=== PATIENT | female | born 1975 | race Caucasian/White ===

== ENCOUNTER 2017-01-18 11:46 | Emergency (ER) | payer OTHER, SELFPAY ==
[2017-01-18 12:56] VITALS: BMI 25.7
[2017-01-18 13:06] VITALS: RESP 18
--- NOTE | 2017-01-18 13:31 | C.PDOC ---
History Of Present Illness 41 yr old female with PMHx of HTN, presents to the ER for evaluation of nasal congestion, sore throat and dry cough persistent for the past week and a half. Patient denies fever, chills, chest pain, SOB, drooling, lethargy, nausea, vomiting, abdominal pain, diarrhea, headache, weakness or numbness. Time Seen by Provider: 01/18/17 13:10 Chief Complaint (Nursing): Cough, Cold, Congestion History Per: Patient History/Exam Limitations: no limitations Onset/Duration Of Symptoms: Persistent (Week and a half) Current Symptoms Are (Timing): Still Present Sick Contacts (Context): None Past Medical History Reviewed: Historical Data, Nursing Documentation, Vital Signs Vital Signs: Last Vital Signs Temp 98.2 F 01/18/17 14:24 Pulse 75 01/18/17 14:24 Resp 18 01/18/17 14:24 BP 128/75 01/18/17 14:24 Pulse Ox 97 01/18/17 14:24 - Medical History PMH: Anxiety, Depression, HTN, Migraine (Headaches when she doesn't take her BP medication(s)) Surgical History: Cholecystectomy (2006) Family History: States: No Known Family Hx - Social History Hx Tobacco Use: No Hx Alcohol Use: Yes Hx Substance Use: No - Immunization History Hx Tetanus Toxoid Vaccination: Yes Hx Influenza Vaccination: Yes Hx Pneumococcal Vaccination: Yes Review Of Systems Except As Marked, All Systems Reviewed And Found Negative. Constitutional: Negative for: Fever, Chills ENT: Positive for: Nose Congestion, Throat Pain (Sore throat ) Cardiovascular: Negative for: Chest Pain Respiratory: Positive for: Cough (Dry). Negative for: Shortness of Breath Gastrointestinal: Negative for: Nausea, Vomiting, Abdominal Pain, Diarrhea Neurological: Negative for: Weakness, Numbness, Headache Physical Exam - Physical Exam Appears: Well, Non-toxic, No Acute Distress Skin: Normal Color, Warm, Dry, No Rash Eye(s): bilateral: Normal Inspection Ear(s): Bilateral: Normal Nose: Discharge (B/L nasal congestion with scant rhinorhea) Oral Mucosa: Moist, No Drooling Throat: Erythema (mild B/L), No Exudate, No Drooling Neck: Normal, Normal ROM, Supple Cardiovascular: Rhythm Regular Respiratory: Normal Breath Sounds, No Decreased Breath Sounds, No Accessory Muscle Use, No Rales, No Rhonchi, No Stridor, No Wheezing Gastrointestinal/Abdominal: Normal Exam, Soft, No Tenderness Back: Normal Inspection Extremity: Normal ROM, No Pedal Edema Neurological/Psych: Oriented x3, Normal Speech ED Course And Treatment O2 Sat by Pulse Oximetry: 100 Pulse Ox Interpretation: Normal Progress Note: On re-evaluation, pt is afebrile, hemodynamicaly stable. Non- toxic. Tolerate Po well in ED. PusleOx 100% RA. ENT: no acute finidngs. Neck : (-) meningeal sign. Lungs: CTA B/L, BS equal B/L. Abd: Benign. Neurologicaly intact. Pt has clinical findings c/w bronchitis. Pt advised. ref. to f/u with PMD In 2-3 dyas for re-evaluation. Return to ED if any worsening ro new changes. Medical Decision Making Medical Decision Making: PLAN: * Benadryl PO * Tessalon Perles PO * Zithromax PO * Prednisone PO Disposition Counseled Patient/Family Regarding: Diagnosis, Need For Followup, Rx Given - Disposition Referrals: Clinic,Med Surg [Primary Care Provider] - Disposition: HOME/ ROUTINE Disposition Time: 13:32 Condition: STABLE Additional Instructions: Encourage fluids Take medication as prescribed Follow up with PMD In 2-3 days for re-evaluation. Return to ED if any worsening or new changes. 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 - Scribe Statement The provider has reviewed the documentation as recorded by the Scribe Anisa Mcmahon All medical record entries made by the Scribe were at my direction and personally dictated by me. I have reviewed the chart and agree that the record accurately reflects my personal performance of the history, physical exam, medical decision making, and the department course for this patient. I have also personally directed, reviewed, and agree with the discharge instructions and disposition.
[2017-01-18 14:25] VITALS: BP 128/75; PULSE 75; TEMP 98.2
[2017-01-20 13:22] VITALS: O2SAT 100
== END 2017-01-18 14:26 | disposition home or self-care (01) ==
LOC: SUPCPDRO 11:46 → C.ER 11:46
DX: J40 Bronchitis, not specified as acute or chronic (principal)

== ENCOUNTER 2017-06-16 15:52 | Emergency (ER) | payer OTHER ==
[2017-06-16 15:53] VITALS: BMI 25.7
[2017-06-16 16:06] VITALS: BP 115/69; TEMP 98.7
--- NOTE | 2017-06-16 16:39 | C.PDOC ---
History Of Present Illness 41 year old female presents to ED for evaluation exacerbation of allergies for the past week. Notes taking Benadryl and Gaby without relief. Pt reports having non-productive cough, which is worse at night due to runny nose. Notes she is unable to sleep at night. Pt is requesting similar meds "like they gave me last time" from prior ER vist 01/2017. Also reports bilateral eye itchiness. Denies history of asthma. No shortness of breath. CO ALLERGIES EXAC X 1 WEEK. NO RELIEF W BENADRYL, GABY. 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 UNABLE TO SLEEP. REQUESTING SIM MEDS "LIKE THEY GAVE ME LAST TIME" FROM PRIOR ER VISIT 01/2017. +B/L EYE ITCH. DENIES HO ASTHMA, SOB. ' EXAM MILD DIST NONTOXIC HEENT MILD B/L ANGIOEDEMA, B/L WATERY EYE DC. +CLEAR RHINORRHEA LUNGS NEG NO HIVES. Time Seen by Provider: 06/16/17 16:24 Chief Complaint (Nursing): ENT Problem History Per: Patient History/Exam Limitations: no limitations Onset/Duration Of Symptoms: Days (1 week) Sick Contacts (Context): None Associated Symptoms: Cough. denies: Fever, Sore Throat, Sputum Ear Symptoms: Bilateral: None Recent travel outside of the [place]: No Additional History Per: Patient Past Medical History Reviewed: Historical Data, Nursing Documentation, Vital Signs Vital Signs: Last Vital Signs Temp 98.7 F 06/16/17 16:06 Pulse 88 06/16/17 16:48 Resp 18 06/16/17 16:48 BP 115/69 06/16/17 16:06 Pulse Ox 100 06/16/17 17:03 - Medical History PMH: Anxiety, Depression, HTN, Migraine (Headaches when she doesn't take her BP medication(s)) Surgical History: Cholecystectomy (2006) Family History: States: Unknown Family Hx - Social History Hx Tobacco Use: No Hx Alcohol Use: No Hx Substance Use: No - Immunization History Hx Tetanus Toxoid Vaccination: Yes Hx Influenza Vaccination: Yes Hx Pneumococcal Vaccination: Yes Review Of Systems Except As Marked, All Systems Reviewed And Found Negative. Constitutional: Negative for: Fever, Chills Eyes: Positive for: Other (itching to b/l eyes) ENT: Positive for: Nose Discharge (rhinorrhea) Cardiovascular: Negative for: Chest Pain Respiratory: Positive for: Cough. Negative for: Shortness of Breath, Sputum, Wheezing Skin: Negative for: Rash Physical Exam - Physical Exam Appears: Non-toxic, Other (In mild distress) Skin: Normal Color, Warm, Dry, No Rash Head: Atraumatic, Normacephalic, Other (mild b/l angioedema) Eye(s): bilateral: Other (watery eye discharge) Ear(s): Bilateral: Normal Nose: Discharge (clear rhinorrhea) Oral Mucosa: Moist Throat: Normal, No Erythema, No Exudate, No Drooling Neck: Normal ROM, Supple Cardiovascular: Rhythm Regular, No Murmur Respiratory: Normal Breath Sounds, No Rales, No Rhonchi, No Wheezing Extremity: Bilateral: Atraumatic, Normal ROM Neurological/Psych: Oriented x3, Normal Speech, Normal Cognition ED Course And Treatment O2 Sat by Pulse Oximetry: 100 (on RA) Pulse Ox Interpretation: Normal Disposition Counseled Patient/Family Regarding: Diagnosis, Need For Followup, Rx Given - Disposition Referrals: [facility] [Outside] [facility] [Outside] Disposition: HOME/ ROUTINE Disposition Time: 16:37 Condition: GOOD Prescriptions: Loratadine/Pseudoephedrine [Claritin-D 24 Hour Tablet] 1 each PO DAILY #15 tab.er.24h predniSONE [Prednisone] 60 mg PO DAILY #15 tab Promethazine HCl/Codeine [Prometh-Codein 6.25-10 mg/5 ml] 5 ml PO Q6 PRN #1 syrup PRN Reason: Cough Instructions: Allergic Rhinitis (ED) Forms: [employer] (Maltese) - Clinical Impression Clinical Impression: Allergic rhinitis, Cough - Scribe Statement The provider has reviewed the documentation as recorded by the Genovevaibjohnathon Magallon All medical record entries made by the Scribe were at my direction and personally dictated by me. I have reviewed the chart and agree that the record accurately reflects my personal performance of the history, physical exam, medical decision making, and the department course for this patient. I have also personally directed, reviewed, and agree with the discharge instructions and disposition.
[2017-06-16 16:49] VITALS: PULSE 88; RESP 18
[2017-06-16 16:54] VITALS: O2SAT 100
== END 2017-06-16 16:49 | disposition home or self-care (01) ==
LOC: C.ER 15:52
DX: J30.9 Allergic rhinitis, unspecified (principal); R05 Cough

== ENCOUNTER 2017-06-29 18:40 | Emergency (ER) | payer OTHER ==
[2017-06-29 18:41] VITALS: BMI 25.7
[2017-06-29 18:56] VITALS: RESP 18
[2017-06-29 19:31] LABS: RBC URINE 5 /hpf (0-3); URINE BACTERIA OCC (<OCC); URINE BILIRUBIN NEGATIVE (NEGATIVE); URINE BLOOD NEGATIVE (NEGATIVE); URINE COLOR Yellow (YELLOW); URINE GLUCOSE (UA) NORMAL (Normal); URINE KETONE TRACE mg/dL (NEGATIVE); URINE LEUKOCYTE ESTERASE NEG Leu/uL (Negative); URINE PROTEIN NEGATIVE (NEGATIVE); URINE UROBILINOGEN NORMAL mg/dL (0.2-1.0); WBC URINE 3 /hpf (0-5)
--- NOTE | 2017-06-29 19:52 | C.PDOC ---
History Of Present Illness 41 y/o female presents to ED with complaints of low abdominal pain constant associated with nausea for 1 week. Patient also reports dry cough for 3 weeks. Patient's LMP was on 05/24/17 but states home test was negative. Patient denies fever, chills, diarrhea, dysuria or any other complaints at this time. Time Seen by Provider: 06/29/17 19:30 Chief Complaint (Nursing): Abdominal Pain History Per: Patient History/Exam Limitations: no limitations Onset/Duration Of Symptoms: Days Current Symptoms Are (Timing): Still Present Past Medical History Reviewed: Historical Data, Nursing Documentation, Vital Signs Vital Signs: Last Vital Signs Temp 98.5 F 06/29/17 18:52 Pulse 92 H 06/29/17 18:52 Resp 18 06/29/17 18:52 BP 169/113 H 06/29/17 18:52 Pulse Ox 98 06/29/17 19:58 - Medical History PMH: Anxiety, Depression, HTN, Migraine (Headaches when she doesn't take her BP medication(s)) Surgical History: Cholecystectomy (2006) Family History: States: No Known Family Hx - Social History Hx Tobacco Use: No Hx Alcohol Use: No Hx Substance Use: No - Immunization History Hx Tetanus Toxoid Vaccination: Yes Hx Influenza Vaccination: Yes Hx Pneumococcal Vaccination: Yes Review Of Systems Constitutional: Negative for: Fever, Chills Respiratory: Positive for: Cough Gastrointestinal: Positive for: Nausea, Abdominal Pain. Negative for: Diarrhea Genitourinary: Negative for: Dysuria Musculoskeletal: Negative for: Back Pain Skin: Negative for: Rash Physical Exam - Physical Exam Skin: Warm, Dry Head: Atraumatic Eye(s): bilateral: PERRL, EOMI Nose: No Epistaxis Oral Mucosa: Moist Neck: Normal ROM, Supple Cardiovascular: Rhythm Regular Respiratory: No Decreased Breath Sounds, No Accessory Muscle Use, No Rales, No Rhonchi, No Wheezing Gastrointestinal/Abdominal: Tenderness (to Suprapubic area), No Guarding, No Rebound Neurological/Psych: Oriented x3, Normal Sensation, Other (No focal deficits) ED Course And Treatment - Laboratory Results Result Diagrams: 06/29/17 19:59 06/29/17 19:59 O2 Sat by Pulse Oximetry: 98 (RA) Pulse Ox Interpretation: Normal Medical Decision Making Medical Decision Makinpm disc lab results w pt who is resting quietly in no distress. explained next step in evaluation of abd pain would be CT scan, however she does not wish for any further testing. she has an appt in the clinic coming up. Disposition - Disposition Disposition: HOME/ ROUTINE Disposition Time: 21:39 Condition: STABLE Forms: [employer] (Y[place]) - Clinical Impression Clinical Impression: Abdominal pain, Cough - Scribe Statement The provider has reviewed the documentation as recorded by the Genovevaibjohnathon Stern All medical record entries made by the Genovevaibjohnathon were at my direction and personally dictated by me. I have reviewed the chart and agree that the record accurately reflects my personal performance of the history, physical exam, medical decision making, and the department course for this patient. I have also personally directed, reviewed, and agree with the discharge instructions and disposition.
[2017-06-29 20:02] LABS: BASO # 0.1 K/uL (0.0-0.2); BASO % 1.1 % (0.0-2.0); EOS # 0.7 K/uL (0.0-0.7); HEMATOCRIT 40.3 % (34.0-47.0); LYMPH # 2.3 K/uL (1.0-4.3); LYMPH % 23.4 % (20.0-40.0); MEAN CELL VOLUME 94.8 fL (81.0-99.0); MEAN CORPUSCULAR HEMOGLOBIN 31.9 pg (27.0-31.0); MEAN CORPUSCULAR HGB CONC 33.7 g/dL (33.0-37.0); MEAN PLATELET VOLUME 8.2 fL (7.2-11.7); MONO # 0.7 K/uL (0.0-0.8); MONO % 6.8 % (0.0-10.0); NRBC % 0.1 % (0.0-2.0); WHITE BLOOD COUNT 9.8 K/uL (4.8-10.8)
[2017-06-29 20:14] LABS: CHLORIDE 106 mmol/L (98-107); POTASSIUM 4.7 mmol/L (3.6-5.2); SODIUM 136 mmol/L (132-148)
[2017-06-29 20:16] LABS: BILIRUBIN,TOTAL 0.8 mg/dL (0.2-1.3); GFR AFRICAN-AMERICAN > 60
[2017-06-29 20:17] LABS: ALB/GLOB RATIO 1.3 (1.0-2.1); ALKALINE PHOSPHATASE 84 U/L (38-126); ALT/SGPT 28 U/L (9-52); AST/SGOT 38 U/L (14-36); BLOOD UREA NITROGEN 22 mg/dL (7-17); CALCIUM 8.6 mg/dl (8.6-10.4); CARBON DIOXIDE 19 mmol/L (22-30); GLUCOSE,RANDOM 101 mg/dL (65-105); TOTAL PROTEIN 7.5 g/dL (6.3-8.3)
[2017-06-29 21:53] VITALS: BP 134/94; PULSE 90; TEMP 97.7; O2SAT 99
== END 2017-06-29 22:00 | disposition home or self-care (01) ==
LOC: C.ER 18:40
DX: R10.30 Lower abdominal pain, unspecified (principal); R05 Cough

== ENCOUNTER 2018-01-24 21:43 | Emergency (ER) | payer SELFPAY ==
[2018-01-24 21:43] VITALS: BMI 25.7
[2018-01-24 22:01] VITALS: BP 150/100; PULSE 117; RESP 22; TEMP 98.2; O2SAT 100
[2018-01-24] MEDS ORDERED: Albuterol-Ipratrop 3 mg / 0.5 (3 ml) UD INH STA (22:18)
[2018-01-24] MEDS ORDERED: Albuterol-Ipratrop 3 mg / 0.5 (3 ml) UD ONE (22:22)
--- NOTE | 2018-01-24 23:02 | C.PDOC ---
History Of Present Illness Patient complains of runny nose, cough, congestion, itchy eyes, and sore scratchy throat one week. She states she usually gets bad allergies and has been taking Benadryl. She also tried Nyquil for cough and to help sleep but feels no relief. Denies any fever, chills, SOB, chest pain, headache. Time Seen by Provider: 01/24/18 22:05 Chief Complaint (Nursing): Cough, Cold, Congestion History Per: Patient History/Exam Limitations: no limitations Onset/Duration Of Symptoms: Days Location Of Pain: Throat, Sinus/es Sick Contacts (Context): Individual(s) At Work Associated Symptoms: Sore Throat, Cough, Nasal Congestion Past Medical History Reviewed: Historical Data, Nursing Documentation, Vital Signs Vital Signs: Last Vital Signs Temp 98.2 F 01/24/18 21:56 Pulse 117 H 01/24/18 21:56 Resp 22 01/24/18 21:56 BP 150/100 H 01/24/18 21:56 Pulse Ox 100 01/24/18 23:04 - Medical History PMH: Anxiety, Depression, HTN, Migraine (Headaches when she doesn't take her BP medication(s)) Surgical History: Cholecystectomy (2006) Family History: States: Unknown Family Hx - Social History Hx Tobacco Use: No Hx Alcohol Use: No Hx Substance Use: No - Immunization History Hx Tetanus Toxoid Vaccination: Yes Hx Influenza Vaccination: Yes Hx Pneumococcal Vaccination: Yes Review Of Systems Constitutional: Negative for: Fever, Weakness, Malaise Eyes: Positive for: Eyelid Inflammation, Redness. Negative for: Vision Change ENT: Positive for: Nose Congestion, Throat Pain. Negative for: Ear Pain Cardiovascular: Negative for: Chest Pain, Palpitations Respiratory: Positive for: Cough. Negative for: Shortness of Breath, Sputum Gastrointestinal: Negative for: Vomiting, Abdominal Pain, Diarrhea Genitourinary: Negative for: Dysuria Musculoskeletal: Negative for: Neck Pain, Back Pain Skin: Negative for: Rash Neurological: Negative for: Headache, Dizziness Physical Exam - Physical Exam Appears: Non-toxic, No Acute Distress Skin: Warm, Dry, No Rash Head: Atraumatic, Normacephalic Eye(s): bilateral: Normal Inspection, PERRL, EOMI Ear(s): Bilateral: Normal Nose: Other (clear rhinorrhea) Oral Mucosa: Moist Tongue: Normal Appearing, No Swelling Lips: Normal Appearing, No Swelling Teeth: Normal Dentition Throat: Erythema (hyperemia of posterior pharynx), No Exudate, No Drooling, No Mass Neck: Normal ROM Lymphatic: Normal Exam Chest: Symmetrical Cardiovascular: Rhythm Regular, No Murmur Respiratory: Wheezing (faint expiratory), Other (coughing) Extremity: Bilateral: Atraumatic, Normal Color And Temperature, Normal ROM Neurological/Psych: Oriented x3, Normal Speech Gait: Steady ED Course And Treatment O2 Sat by Pulse Oximetry: 100 Medical Decision Making Medical Decision Making: Patient with symptoms of allergic rhinitis. CXR ordered to rule out pnuemonia, no infiltrates seen. patient treated with duoneb, claritin, prednisone and tessalon. On re-eval, she has no fever and appears in no distress. Lungs are clear. She states feeling slightly better. Rx given. Advise follow up in the clinic. Disposition Counseled Patient/Family Regarding: Diagnosis, Need For Followup, Rx Given - Disposition Referrals: [facility] [Outside] [facility] [employer] [Outside] Disposition: HOME/ ROUTINE Disposition Time: 23:10 Condition: GOOD Additional Instructions: Vaya a palacios mdico o la clnica en 2-5 mattson sin falta, para mas evaluacin. Frohna los medicamentos andressa indicado. Volver a la sera de emergencia en cualquier momento si los sntomas persisten o empeoran. Prescriptions: Benzonatate [Tessalon Perles] 100 mg PO TID #30 sgl Cetirizine HCl [Zyrtec] 10 mg PO DAILY #30 capsule Prednisone 50 mg PO DAILY #4 tablet Instructions: Seasonal Allergies in Adults Forms: [employer] (Citizen Of [place]) Print Language: ARMENIAN - POA Present On Arrival: None - Clinical Impression Clinical Impression: Allergic rhinitis
--- NOTE | 2018-01-25 11:29 | RAD ---
HISTORY: Cough COMPARISON: 04/10/2015 TECHNIQUE: Chest PA and lateral FINDINGS: LUNGS: No active pulmonary disease. PLEURA: No significant pleural effusion identified. No pneumothorax apparent. CARDIOVASCULAR: Normal. OSSEOUS STRUCTURES: No significant abnormalities. VISUALIZED UPPER ABDOMEN: Normal. OTHER FINDINGS: None. IMPRESSION: No active disease. No significant interval change compared to the prior examination(s).
== END 2018-01-24 23:19 | disposition home or self-care (01) ==
LOC: C.ER 21:43
DX: J30.9 Allergic rhinitis, unspecified (principal)

== ENCOUNTER 2018-02-06 12:17 | Emergency (ER) | payer OTHER ==
[2018-02-06 12:17] VITALS: BMI 25.7
[2018-02-06 12:37] VITALS: BP 140/98; PULSE 100; RESP 18; TEMP 98.4; O2SAT 98
[2018-02-06] MEDS ORDERED: guaiFENesin DM 100 mg-10 mg/5 ml UD PO STA (12:41)
[2018-02-06] MEDS ORDERED: guaiFENesin DM 100 mg-10 mg/5 ml UD ONE (12:46)
--- NOTE | 2018-02-06 12:46 | C.PDOC ---
History Of Present Illness 42 year old female presents to ED with complaints of non-productive cough for 2 weeks. She states she was seen in ED and given medications which helped but not completely. The cough persists and is worse at night. She denies any fever, chills, chest pain, SOB. Time Seen by Provider: 02/06/18 12:37 Chief Complaint (Nursing): Cough, Cold, Congestion History Per: Patient History/Exam Limitations: no limitations Onset/Duration Of Symptoms: Other (2 weeks) Current Symptoms Are (Timing): Still Present Associated Symptoms: Cough. denies: Sputum Past Medical History Reviewed: Historical Data, Nursing Documentation, Vital Signs Vital Signs: Last Vital Signs Temp 98.4 F 02/06/18 12:33 Pulse 100 H 02/06/18 12:33 Resp 18 02/06/18 12:33 BP 140/98 H 02/06/18 12:33 Pulse Ox 98 02/06/18 12:33 - Medical History PMH: Anxiety, Depression, HTN, Migraine (Headaches when she doesn't take her BP medication(s)) Surgical History: Cholecystectomy (2006) Family History: States: Unknown Family Hx - Social History Hx Tobacco Use: No Hx Alcohol Use: No Hx Substance Use: No - Immunization History Hx Tetanus Toxoid Vaccination: Yes Hx Influenza Vaccination: Yes Hx Pneumococcal Vaccination: Yes Review Of Systems Constitutional: Negative for: Fever, Chills Eyes: Negative for: Redness ENT: Positive for: Throat Pain. Negative for: Ear Pain Cardiovascular: Negative for: Chest Pain, Palpitations Respiratory: Positive for: Cough. Negative for: Shortness of Breath Gastrointestinal: Negative for: Abdominal Pain Skin: Negative for: Rash Neurological: Negative for: Headache Physical Exam - Physical Exam Appears: Non-toxic, No Acute Distress Skin: Warm, Dry, No Diaphoretic, No Pale Head: Atraumatic, Normacephalic Eye(s): bilateral: Normal Inspection, EOMI Ear(s): Bilateral: Normal Nose: Normal Oral Mucosa: Moist Throat: No Erythema, No Exudate, No Drooling Neck: Normal ROM Chest: Symmetrical Cardiovascular: Rhythm Regular, No Murmur Respiratory: Normal Breath Sounds, No Accessory Muscle Use, No Rhonchi, No Wheezing Extremity: Bilateral: Atraumatic, Normal ROM Neurological/Psych: Oriented x3, Normal Speech Gait: Steady ED Course And Treatment O2 Sat by Pulse Oximetry: 98 Medical Decision Making Medical Decision Making: Patient with cough for 2 weeks. She has no fever, chest pain, SOB, wheezing or signs of distress. Will treat with Robitussin and give Rx for new cough medicine. Advise follow up in the clinic. Disposition Counseled Patient/Family Regarding: Diagnosis, Need For Followup, Rx Given - Disposition Referrals: Kae Brandon MD [Staff Provider] - Disposition: HOME/ ROUTINE Disposition Time: 12:46 Condition: GOOD Additional Instructions: Por favor haz un seguimiento en la clnica brandi medicamentos segn las indicaciones Regrese al departamento de emergencia en cualquier momento si los sntomas persisten o empeoran. Prescriptions: Azithromycin [Z-Carlos] 250 mg PO DAILY #6 tab Promethazine HCl/Codeine [Prometh-Codein 6.25-10 mg/5 ml] 5 ml PO Q8 PRN #300 syrup PRN Reason: Cough Instructions: Chronic Bronchitis Print Language: KYRGYZ - POA Present On Arrival: None - Clinical Impression Clinical Impression: Bronchitis
== END 2018-02-06 13:06 | disposition home or self-care (01) ==
LOC: C.ER 12:17
DX: J40 Bronchitis, not specified as acute or chronic (principal)

== ENCOUNTER 2018-07-21 23:21 | Emergency (ER) | payer SELFPAY ==
[2018-07-21 23:21] VITALS: BMI 25.7
[2018-07-21 23:29] VITALS: BP 150/90; PULSE 90; RESP 16; TEMP 98.8; O2SAT 97
--- NOTE | 2018-07-22 00:27 | C.PDOC ---
History Of Present Illness 42 year old female presents to the ER with a complaint of nasal congestion, eye redness, runny nose, and cough for the past 2 weeks that has worsened today. Patient has been taking benadryl and marco with no relief. Patient has a Hx of seasonal allergies and states this feels similar to her past allergy episodes. Denies fever, chills, or SOB. <Deepa Peters - Last Filed: 07/22/18 06:08> History Per: Patient History/Exam Limitations: no limitations Onset/Duration Of Symptoms: Days (x2 weeks) Current Symptoms Are (Timing): Still Present Associated Symptoms: Cough, Sinus Drainage, Nasal Congestion, Other ((+) Eye redness (-) SOB). denies: Fever, Chills Ear Symptoms: Bilateral: None Recent travel outside of the [place]: No <Deepa Peters - Last Filed: 07/22/18 06:08> <Veronica Cook - Last Filed: 07/23/18 06:35> Time Seen by Provider: 07/21/18 23:33 Chief Complaint (Nursing): ENT Problem Past Medical History Reviewed: Historical Data, Nursing Documentation, Vital Signs Vital Signs: Last Vital Signs Temp 98.8 F 07/21/18 23:26 Pulse 90 07/21/18 23:26 Resp 16 07/21/18 23:26 BP 150/90 07/21/18 23:26 Pulse Ox 97 07/21/18 23:26 - Medical History PMH: Anxiety, Depression, HTN, Migraine (Headaches when she doesn't take her BP medication(s)) Surgical History: Cholecystectomy (2006) Family History: States: Unknown Family Hx - Social History Hx Tobacco Use: No Hx Alcohol Use: No Hx Substance Use: No - Immunization History Hx Tetanus Toxoid Vaccination: Yes Hx Influenza Vaccination: Yes Hx Pneumococcal Vaccination: Yes <Deepa Peters - Last Filed: 07/22/18 06:08> Vital Signs: Last Vital Signs Temp 98.8 F 07/21/18 23:26 Pulse 90 07/21/18 23:26 Resp 16 07/21/18 23:26 BP 150/90 07/21/18 23:26 Pulse Ox 97 07/22/18 06:08 <Veronica Cook - Last Filed: 07/23/18 06:35> Review Of Systems Constitutional: Negative for: Fever, Chills Eyes: Positive for: Redness ENT: Positive for: Nose Discharge, Nose Congestion. Negative for: Throat Pain Cardiovascular: Negative for: Chest Pain, Palpitations Respiratory: Positive for: Cough Gastrointestinal: Negative for: Nausea, Vomiting <Deepa Peters - Last Filed: 07/22/18 06:08> Physical Exam - Physical Exam Appears: Non-toxic Skin: Normal Color, Warm, Dry Head: Atraumatic, Normacephalic Eye(s): bilateral: PERRL, EOMI, Other (Injection) Nose: Discharge, Other (Nasal congestion) Oral Mucosa: Moist Neck: Normal, Supple Chest: Symmetrical, No Tenderness Cardiovascular: Rhythm Regular Respiratory: Normal Breath Sounds, No Rales, No Rhonchi, No Wheezing Gastrointestinal/Abdominal: Soft, No Tenderness Neurological/Psych: Oriented x3, Normal Speech Gait: Steady <Deepa Peters - Last Filed: 07/22/18 06:08> ED Course And Treatment O2 Sat by Pulse Oximetry: 97 (Room air) Pulse Ox Interpretation: Normal <Deepa Peters Jessica - Last Filed: 07/22/18 06:08> Medical Decision Making Medical Decision Making: Claritin and prednisone administered. Patient is resting comfortably in the ER in no acute distress, vitals are stable, will discharge home with Rx and instructions to follow up with PMD. <eDepa Peters - Last Filed: 07/22/18 06:08> Disposition - Disposition Disposition Time: 00:26 <Deepa Peters - Last Filed: 07/22/18 06:08> <Veronica Cook - Last Filed: 07/23/18 06:35> - Disposition Referrals: Ramses Moran MD [Medical Doctor] - Jose Luis Rai MD [Staff Provider] - Swati Hua PA [Physician Distribution Estimator] - Griffin Calles MD [Medical Doctor] - Disposition: HOME/ ROUTINE Condition: STABLE Additional Instructions: Follow up with the medical doctor within 1-2 days, Return if worsened. Prescriptions: Fluticasone Propionate [Flonase] 1 spr NS DAILY #100 spr Loratadine/Pseudoephedrine [Loratadine-D 24Hr Tablet] 1 each PO DAILY #10 tab.er.24h predniSONE [Prednisone] 10 mg PO BID #10 tab Instructions: Seasonal Allergies (DC) Forms: [employer] ([place]) - Clinical Impression Clinical Impression: Allergic rhinitis - Scribe Statement The provider has reviewed the documentation as recorded by the Scribe Azar Henson All medical record entries made by the Scribe were at my direction and personally dictated by me. I have reviewed the chart and agree that the record accurately reflects my personal performance of the history, physical exam, medical decision making, and the department course for this patient. I have also personally directed, reviewed, and agree with the discharge instructions and disposition. 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 <Veronica Cook - Last Filed: 07/23/18 06:35>
== END 2018-07-22 00:33 | disposition home or self-care (01) ==
LOC: C.ER 23:21
DX: J30.9 Allergic rhinitis, unspecified (principal)

== ENCOUNTER 2018-12-03 14:39 | Emergency (ER) | payer SELFPAY ==
[2018-12-03 14:40] VITALS: BMI 25.7
--- NOTE | 2018-12-03 15:30 | C.PDOC ---
History Of Present Illness 43 year old female presents to the ED for evaluation of nausea and vomiting for 5 days. Denies abdominal pain, fever, chills, and any other associated symptoms. Time Seen by Provider: 12/03/18 15:17 Chief Complaint (Nursing): GI Problem History Per: Patient History/Exam Limitations: no limitations Onset/Duration Of Symptoms: Days (x5) Current Symptoms Are (Timing): Still Present Associated Symptoms: Vomiting Recent travel outside of the [place]: No Past Medical History Reviewed: Historical Data, Nursing Documentation, Vital Signs Vital Signs: Last Vital Signs Temp 99.6 F 12/03/18 14:54 Pulse 100 H 12/03/18 14:54 Resp 16 12/03/18 14:54 BP 156/90 H 12/03/18 14:54 Pulse Ox 98 12/03/18 14:54 - Medical History PMH: Anxiety, Depression, HTN, Migraine (Headaches when she doesn't take her BP medication(s)) Surgical History: Cholecystectomy (2006) Family History: States: Unknown Family Hx - Social History Hx Tobacco Use: No Hx Alcohol Use: No Hx Substance Use: No - Immunization History Hx Tetanus Toxoid Vaccination: Yes Hx Influenza Vaccination: Yes Hx Pneumococcal Vaccination: Yes Review Of Systems Except As Marked, All Systems Reviewed And Found Negative. Constitutional: Negative for: Fever, Chills Gastrointestinal: Positive for: Nausea, Vomiting. Negative for: Abdominal Pain Physical Exam - Physical Exam Appears: Non-toxic, No Acute Distress Skin: Warm, Dry Head: Atraumatic, Normacephalic Eye(s): bilateral: Normal Inspection Oral Mucosa: Moist Neck: Normal ROM, Supple Chest: Symmetrical, No Deformity Cardiovascular: Rhythm Regular, No Murmur Respiratory: Normal Breath Sounds, No Rales, No Rhonchi, No Wheezing, No Other (NARD) Gastrointestinal/Abdominal: Normal Exam, Soft, No Tenderness Extremity: Bilateral: Atraumatic, Normal Color And Temperature Neurological/Psych: Oriented x3, Normal Speech, Normal Cognition ED Course And Treatment - Laboratory Results Urine POC: Positive O2 Sat by Pulse Oximetry: 98 (RA) Pulse Ox Interpretation: Normal - Physician Consult Information Time Consulting Physician Contacted: 15:31 Outcome Of Conversation: D/W DR BELINDA HERRERA [employer]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 Re-eval: pt informed she was . , LMP 1.8.19 Pt denies vaginal bleeding and any abdominal pain. 3:30pm : Spoke with Dr. Khalil regarding a HPT medication. Pt advised to follow-up with the clinic for OB/ care. Pt stable for discharge home. Disposition Counseled Patient/Family Regarding: Studies Performed, Diagnosis, Need For Followup, Rx Given - Disposition Referrals: [facility] [Outside] [facility] [Other] Disposition: HOME/ ROUTINE Disposition Time: 16:00 Condition: IMPROVED Additional Instructions: IMMEDIATELY STOP USING LISINOPRIL DUE TO CURRENT STATE. FOLLOW UP WITH YOUR PMD AND OBGYN FOR FURTHER EVALUATION. INMEDIATAMENTE PARE A LISINOPRIL DEBIDO AL ESTADO DE EMBARAZO ACTUAL. SEGUIR CON FERRERA PMD Y OBTENCIGICO OBTENIDO PARA ZACHERY EVALUACIN ADICIONAL. Prescriptions: Labetalol [Trandate] 100 mg PO DAILY #30 tab Ondansetron ODT [Zofran ODT] 4 mg PO TID PRN #12 odt PRN Reason: Nausea/Vomiting Vit No.138/Folic/Dha [Alive Gummy] 1 each PO DAILY #30 tab.chew Instructions: Nausea and Vomiting of (DC) Forms: [employer] (Canadian) - Clinical Impression Clinical Impression: Vomiting - Scribe Statement The provider has reviewed the documentation as recorded by the Scribe (Theresa Parks) Provider Attestation: All medical record entries made by the Scribe were at my direction and personally dictated by me. I have reviewed the chart and agree that the record accurately reflects my personal performance of the history, physical exam, medical decision making, and the department course for this patient. I have also personally directed, reviewed, and agree with the discharge instructions and disposition.
[2018-12-03] MEDS ORDERED: Sodium Chloride 0.9% 500 ML IV ONE ×2 (15:33→15:43)
[2018-12-03 16:02] VITALS: BP 148/78; PULSE 90; RESP 18; TEMP 99.1
[2018-12-03 16:05] VITALS: O2SAT 98
== END 2018-12-03 16:20 | disposition home or self-care (01) ==
LOC: C.ER 14:39
DX: O21.9 Vomiting of pregnancy, unspecified (principal)
CPT/HCPCS: 81025; 96361; 96374; 99284; J2405; J7040

== ENCOUNTER 2018-12-06 00:34 | Emergency (ER) | payer SELFPAY ==
[2018-12-06 00:34] VITALS: BMI 25.7
[2018-12-06 00:40] VITALS: PULSE 82; TEMP 98.7; O2SAT 98
[2018-12-06 01:50] LABS: HCG,QUALITATIVE URINE POSITIVE (NEGATIVE)
[2018-12-06 01:52] LABS: BASO # 0.1 K/uL (0.0-0.2); BASO % 0.9 % (0.0-2.0); EOS # 0.1 K/uL (0.0-0.7); EOS % 1.6 % (0.0-4.0); HEMOGLOBIN 12.2 g/dL (11.0-16.0); LYMPH % 22.8 % (20.0-40.0); MEAN CELL VOLUME 95.8 fL (81.0-99.0); MEAN CORPUSCULAR HEMOGLOBIN 31.5 pg (27.0-31.0); MEAN CORPUSCULAR HGB CONC 32.9 g/dL (33.0-37.0); MEAN PLATELET VOLUME 8.5 fL (7.2-11.7); MONO # 0.8 K/uL (0.0-0.8); MONO % 9.1 % (0.0-10.0); NEUT # 5.7 K/uL (1.8-7.0); NEUT % 65.6 % (50.0-75.0); RBC 3.87 Mil/uL (3.80-5.20); RED CELL DISTRIBUTION WIDTH 13.5 % (11.5-14.5); WHITE BLOOD COUNT 8.7 K/uL (4.8-10.8)
[2018-12-06 01:54] LABS: SQUAMOUS EPITHIAL 5 /hpf (0-5); URINE BACTERIA RARE (<OCC); URINE BILIRUBIN NEGATIVE (NEGATIVE); URINE CLARITY Hazy (Clear); URINE COLOR Yellow (YELLOW); URINE GLUCOSE (UA) NORMAL (Normal); URINE LEUKOCYTE ESTERASE NEG Leu/uL (Negative); URINE PROTEIN NEGATIVE (NEGATIVE); URINE UROBILINOGEN NORMAL mg/dL (0.2-1.0)
[2018-12-06 01:55] LABS: URINE BLOOD NEGATIVE (NEGATIVE)
[2018-12-06 02:05] LABS: ALB/GLOB RATIO 1.5 (1.0-2.1); ALBUMIN 4.2 g/dL (3.5-5.0); ALT/SGPT 23 U/L (9-52); AST/SGOT 24 U/L (14-36); BLOOD UREA NITROGEN 17 mg/dL (7-17); CALCIUM 9.6 mg/dl (8.6-10.4); GFR NON-AFRICAN AMERICAN > 60
[2018-12-06 02:39] VITALS: BP 114/72; RESP 18
--- NOTE | 2018-12-06 04:30 | C.PDOC ---
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 Denies abdominal or back pain. Time Seen by Provider: 12/06/18 01:09 Chief Complaint (Nursing): Female Genitourinary History Per: Patient History/Exam Limitations: no limitations Onset/Duration Of Symptoms: Days Current Symptoms Are (Timing): Still Present Quality Of Discomfort: Unable To Describe Associated Symptoms: Other (Vaginal spotting. No pain.) Alleviating Factors: None Recent travel outside of the [place]: No Past Medical History Reviewed: Historical Data, Nursing Documentation, Vital Signs Vital Signs: Last Vital Signs Temp 98.7 F 12/06/18 00:37 Pulse 82 12/06/18 00:37 Resp 18 12/06/18 02:37 BP 114/72 12/06/18 02:37 Pulse Ox 98 12/06/18 00:37 - Medical History PMH: Anxiety, Depression, HTN, Migraine (Headaches when she doesn't take her BP medication(s)) Surgical History: Cholecystectomy (2010) Family History: States: Unknown Family Hx - Social History Hx Tobacco Use: No Hx Alcohol Use: No Hx Substance Use: No - Immunization History Hx Tetanus Toxoid Vaccination: Yes Hx Influenza Vaccination: Yes Hx Pneumococcal Vaccination: Yes Review Of Systems Constitutional: Negative for: Fever, Chills Cardiovascular: Negative for: Chest Pain, Palpitations Respiratory: Negative for: Cough, Shortness of Breath Gastrointestinal: Negative for: Nausea, Vomiting, Abdominal Pain Genitourinary: Positive for: Other (Vaginal spotting) Neurological: Negative for: Weakness, Numbness Physical Exam - Physical Exam Appears: Non-toxic Skin: Normal Color, Warm, Dry Head: Atraumatic, Normacephalic Eye(s): bilateral: Normal Inspection Oral Mucosa: Moist Chest: Symmetrical, No Tenderness Cardiovascular: Rhythm Regular Respiratory: Normal Breath Sounds, No Rales, No Rhonchi, No Wheezing Gastrointestinal/Abdominal: Soft, No Tenderness Pelvic: No Vaginal Bleeding, No Vaginal Discharge, Other (Os closed) Neurological/Psych: Oriented x3, Normal Speech ED Course And Treatment - Laboratory Results Result Diagrams: 12/06/18 01:43 12/06/18 01:43 Lab Results: Total Bilirubin 0.2 mg/dL (0.2-1.3) 12/06/18 01:43 AST 24 U/L (14-36) 12/06/18 01:43 ALT 23 U/L (9-52) 12/06/18 01:43 Alkaline Phosphatase 87 U/L (38-126) 12/06/18 01:43 Total Protein 7.0 g/dL (6.3-8.3) 12/06/18 01:43 Albumin 4.2 g/dL (3.5-5.0) 12/06/18 01:43 Globulin 2.9 gm/dL (2.2-3.9) 12/06/18 01:43 Albumin/Globulin Ratio 1.5 (1.0-2.1) 12/06/18 01:43 Urine Color Yellow (YELLOW) 12/06/18 01:43 Urine Clarity Hazy (Clear) 12/06/18 01:43 Urine pH 7.0 (5.0-8.0) 12/06/18 01:43 Ur Specific [place] 1.016 (1.003-1.030) 12/06/18 01:43 Urine Protein Negative mg/dL (NEGATIVE) 12/06/18 01:43 Urine Glucose (UA) Normal mg/dL (Normal) 12/06/18 01:43 Urine Ketones Negative mg/dL (NEGATIVE) 12/06/18 01:43 Urine Blood Negative (NEGATIVE) 12/06/18 01:43 Urine Nitrate Negative (NEGATIVE) 12/06/18 01:43 Urine Bilirubin Negative (NEGATIVE) 12/06/18 01:43 Urine Urobilinogen Normal mg/dL (0.2-1.0) 12/06/18 01:43 Ur Leukocyte Esterase Neg Dianna/uL (Negative) 12/06/18 01:43 Urine WBC (Auto) 1 /hpf (0-5) 12/06/18 01:43 Urine RBC (Auto) 2 /hpf (0-3) 12/06/18 01:43 Ur Squamous Epith Cells 5 /hpf (0-5) 12/06/18 01:43 Urine Bacteria Rare (<OCC) 12/06/18 01:43 Urine HCG, Qual Positive (NEGATIVE) 12/06/18 01:43 Beta HCG, Quant 2950.70 mIU/ML 12/06/18 01:43 Urine HCG, Qual Positive (NEGATIVE) 12/06/18 01:43 O2 Sat by Pulse Oximetry: 98 - CT Scan/US US Other Rad Studies (CT/US): Read By Radiologist, Radiology Report Reviewed CT/US Interpretation: Obstetric ultrasound, first trimester. Indication: Vaginal bleeding. . Technique: Real-time ultrasound images were obtained. Findings: Enlarged uterus measuring 14.4x9.9x11.1 cm. Endometrium is diffusely thickened measuring 12.1 mm. Fundal intramural/subserosal fibroid measuring 6.8 cm. Fundal intramural/subserosal fibroid measuring 5.4 cm. Fundal/subserosal fibroid measuring 6.9 cm. Benign nabothian cysts are cervix. Suspected early intrauterine gestational sac like structure measuring 0.48 cm. No free fluid is noted in the pelvic cul-de-sac. Nonvisualization of the right ovary. Normal left ovary. Impression: Suspected early intrauterine gestational sac like structure. No yolk sac is identified. No pole is seen on the current exam. Multiple uterine leiomyomas as described above. Progress Note: Blood work, UA, US ordered, Pt is RH positive. All results discussed with patient. Patient resting comfortably in no acute distress, vitals are stable, will discharge home with instruction to follow up with OB for repeat labs . 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 - Scribe Statement The provider has reviewed the documentation as recorded by the Scribe Azar Henson All medical record entries made by the Genovevaibe were at my direction and personally dictated by me. I have reviewed the chart and agree that the record accurately reflects my personal performance of the history, physical exam, medical decision making, and the department course for this patient. I have also personally directed, reviewed, and agree with the discharge instructions and disposition.
--- NOTE | 2018-12-06 10:15 | US ---
Date of service: 12/06/2018 Indication: vaginal bleeding, Comparison: Ob transvaginal ultrasound performed 09/02/15 Technique: Real-time transabdominal pelvic ultrasound was performed. In addition a transvaginal pelvic ultrasound was necessary to better depict pelvic anatomy. Findings: Limited study. Uterus measures approximately 14.4 x 9.9 x 11.1 cm. Anteverted. Numerous probable uterine fibroids. For example: 7.0 x 5.9 x 6.8 cm and 5.2 x 4.5 x 5.4 cm fundal fibroids. 6.9 x 5.6 x 5.6 cm mid uterine fibroid. Endometrial thickness measures approximately 1.2 cm. 0.5 cm cystic focus within the endometrium, possibly intrauterine gestational sac. If in fact this is a gestational sac, it is out of range for gestational age calculation. No evidence of pole or yolk sac at this time. Cervix length measures approximately 3.8 cm. Nabothian cysts are noted. The right ovary is not visualized. The left ovary measures 2.9 x 1.7 x 2.4 cm. Blood flow is demonstrated to the left ovary. Impression: Heterogeneous uterine echotexture. Numerous fibroids evident. Endometrial thickness measures approximately 1.2 cm. 0.5 cm cystic focus within the endometrium, possibly intrauterine gestational sac. If in fact this is a gestational sac, it is out of range for gestational age calculation. No evidence of pole or yolk sac at this time. Correlate clinically including quantitative beta HCG. The right ovary is not visualized. Preliminary impression was provided by Anevia.
== END 2018-12-06 05:07 | disposition home or self-care (01) ==
LOC: C.ER 00:34
DX: O20.0 Threatened abortion (principal); Z3A.01 Less than 8 weeks gestation of pregnancy

== ENCOUNTER 2018-12-07 13:33 | Emergency (ER) | payer OTHER ==
[2018-12-07 13:33] VITALS: BMI 25.7
[2018-12-07 13:44] VITALS: TEMP 98.5
--- NOTE | 2018-12-07 14:30 | C.PDOC ---
History Of Present Illness 43 y/o female presents to the ER complaining of vaginal spotting which has been present for the past 3 days. Patient states that she has mild vaginal spotting only when she wipes in the bathroom. Patient reports that she had a positive test at home.She was evaluated for vaginal spotting in [facility] ER 2 days ago. She was found to Beta levels approximately 2900. She had US which showed yolk sac but no evidence of pole or bleeding. Denies having blood clot or abdominal pain. Time Seen by Provider: 12/07/18 13:53 Chief Complaint (Nursing): Female Genitourinary History Per: Patient History/Exam Limitations: no limitations Onset/Duration Of Symptoms: Days Current Symptoms Are (Timing): Still Present Severity: Moderate Past Medical History Reviewed: Historical Data, Nursing Documentation, Vital Signs Vital Signs: Last Vital Signs Temp 98.5 F 12/07/18 13:38 Pulse 89 12/07/18 13:38 Resp 20 12/07/18 13:38 BP 141/97 H 12/07/18 13:38 Pulse Ox 100 12/07/18 13:38 - Medical History PMH: Anxiety, Depression, HTN, Migraine (Headaches when she doesn't take her BP medication(s)) Surgical History: Cholecystectomy (2010) Family History: States: No Known Family Hx - Social History Hx Tobacco Use: No Hx Alcohol Use: No Hx Substance Use: No - Immunization History Hx Tetanus Toxoid Vaccination: Yes Hx Influenza Vaccination: Yes Hx Pneumococcal Vaccination: Yes Review Of Systems Except As Marked, All Systems Reviewed And Found Negative. Constitutional: Negative for: Fever, Chills Gastrointestinal: Negative for: Nausea, Vomiting, Abdominal Pain Genitourinary: Positive for: Other (vaginal spotting) Physical Exam - Physical Exam Appears: Non-toxic, No Acute Distress Skin: Normal Color, Warm, Dry Head: Atraumatic, Normacephalic Eye(s): bilateral: Normal Inspection Nose: Normal Oral Mucosa: Moist Neck: Supple Chest: Symmetrical Cardiovascular: Rhythm Regular Respiratory: Normal Breath Sounds, No Rales, No Rhonchi, No Wheezing Gastrointestinal/Abdominal: Normal Exam, Soft, No Tenderness, No Guarding, No Rebound Neurological/Psych: Oriented x3, Normal Speech ED Course And Treatment - Laboratory Results Result Diagrams: 12/07/18 14:22 Lab Interpretation: No Acute Changes ([facility] [place] 4195.4) O2 Sat by Pulse Oximetry: 100 (RA) Pulse Ox Interpretation: Normal Medical Decision Making Medical Decision Making: Plan: --Labs Disposition Counseled Patient/Family Regarding: Studies Performed, Diagnosis, Need For Followup - Disposition Referrals: [facility] [Outside] [facility] [place] [facility] [Outside] Disposition: HOME/ ROUTINE Disposition Time: 15:05 Condition: STABLE Additional Instructions: Keep your appointment at [facility] on December 17 as scheduled. Return to the ED for any increased bleeding or pain. Instructions: Threatened Miscarriage Forms: [employer] (Armenian) - Clinical Impression Clinical Impression: Threatened in early - Scribe Statement The provider has reviewed the documentation as recorded by the Genovevaibe Elvia Hodge Provider Attestation: All medical record entries made by the Scribe were at my direction and personal ly dictated by me. I have reviewed the chart and agree that the record accurately reflects my personal performance of the history, physical exam, medical decision making, and the department course for this patient. I have also personally directed, reviewed, and agree with the discharge instructions and disposition.
[2018-12-07 14:31] LABS: BASO # 0.1 K/uL (0.0-0.2); EOS # 0.1 K/uL (0.0-0.7); EOS % 1.2 % (0.0-4.0); LYMPH # 1.4 K/uL (1.0-4.3); LYMPH % 17.9 % (20.0-40.0); MEAN CELL VOLUME 95.8 fL (81.0-99.0); MEAN CORPUSCULAR HEMOGLOBIN 31.6 pg (27.0-31.0); MEAN PLATELET VOLUME 8.3 fL (7.2-11.7); MONO # 0.4 K/uL (0.0-0.8); MONO % 5.8 % (0.0-10.0); NEUT # 5.7 K/uL (1.8-7.0); NEUT % 74.1 % (50.0-75.0); NRBC % 0.1 % (0.0-2.0); RBC 4.12 Mil/uL (3.80-5.20); RED CELL DISTRIBUTION WIDTH 13.3 % (11.5-14.5); WHITE BLOOD COUNT 7.6 K/uL (4.8-10.8)
[2018-12-07 15:31] VITALS: BP 145/95; PULSE 83; RESP 18; O2SAT 97
== END 2018-12-07 15:31 | disposition home or self-care (01) ==
LOC: C.ER 13:33
DX: O20.0 Threatened abortion (principal); Z3A.00 Weeks of gestation of pregnancy not specified

== ENCOUNTER 2018-12-08 20:59 | Emergency (ER) | payer SELFPAY ==
[2018-12-08 20:59] VITALS: BMI 25.7
[2018-12-08] MEDS ORDERED: Sodium Chloride 0.9% 1,000 ML IV ONE (22:03)
--- NOTE | 2018-12-08 22:04 | C.PDOC ---
History Of Present Illness 43 y/o female, currently , presents to the ED for evaluation of vaginal bleeding since a few days ago. She notes the bleeding has been heavier today. Patient also reports dull suprapubic discomfort. States she is 6 weeks by dates. LMP was 10/23/18. Otherwise patient denies any nausea, vomiting, fever, or other complaints. Time Seen by Provider: 12/08/18 22:03 Chief Complaint (Nursing): Female Genitourinary History Per: Patient History/Exam Limitations: no limitations Onset/Duration Of Symptoms: Days Current Symptoms Are (Timing): Worse Severity: Mild Pain Scale Rating Of: 4 Quality Of Discomfort: Dull, Aching Associated Symptoms: Other (Vaginal Bleeding). denies: Vomiting, Loss Of Appetite Alleviating Factors: None Abnormal Vaginal Bleeding: Yes Last Menstral Period: 10/23/18 Past Medical History Reviewed: Historical Data, Nursing Documentation, Vital Signs Vital Signs: Last Vital Signs Temp 98.6 F 12/08/18 21:05 Pulse 87 12/08/18 21:05 Resp 18 12/08/18 21:05 BP 135/91 H 12/08/18 21:05 Pulse Ox 99 12/08/18 21:05 - Medical History PMH: Anxiety, Depression, HTN, Migraine (Headaches when she doesn't take her BP medication(s)) Surgical History: Cholecystectomy (2010) Family History: States: Unknown Family Hx - Social History Hx Tobacco Use: No Hx Alcohol Use: No Hx Substance Use: No - Immunization History Hx Tetanus Toxoid Vaccination: Yes Hx Influenza Vaccination: Yes Hx Pneumococcal Vaccination: Yes Review Of Systems Constitutional: Negative for: Fever, Chills Cardiovascular: Negative for: Chest Pain Respiratory: Negative for: Shortness of Breath Gastrointestinal: Positive for: Abdominal Pain. Negative for: Nausea, Vomiting, Diarrhea Genitourinary: Positive for: Vaginal Bleeding. Negative for: Dysuria, Frequency, Vaginal Discharge Neurological: Negative for: Weakness, Dizziness Physical Exam - Physical Exam Appears: Non-toxic, No Acute Distress Skin: Warm, Dry Head: Normacephalic Eye(s): bilateral: Normal Inspection Oral Mucosa: Moist Neck: Trachea Midline, Supple Chest: Symmetrical Cardiovascular: Rhythm Regular Respiratory: No Rales, No Rhonchi, No Wheezing Gastrointestinal/Abdominal: Soft, Tenderness (Mild suprapubic discomfort on palpation), No Guarding, No Rebound Back: No CVA Tenderness, No Vertebral Tenderness Extremity: Bilateral: Atraumatic, Normal ROM Pulses: Left Dorsalis Pedis: Normal, Right Dorsalis Pedis: Normal Neurological/Psych: Oriented x3 Gait: Steady ED Course And Treatment - Laboratory Results Result Diagrams: 12/08/18 22:27 02 22:27 O2 Sat by Pulse Oximetry: 99 (RA) Pulse Ox Interpretation: Normal Progress Note: Labs and OB/ US ordered. Patient given 1L IV fluids. 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 I have reviewed the chart and agree that the record accurately reflects my personal performance of the history, physical exam, medical decision making, and the department course for this patient. I have also personally directed, reviewed, and agree with the discharge instructions and disposition.
[2018-12-08 22:36] LABS: BASO # 0.1 K/uL (0.0-0.2); BASO % 0.5 % (0.0-2.0); EOS # 0.1 K/uL (0.0-0.7); EOS % 1.1 % (0.0-4.0); HEMOGLOBIN 13.2 g/dL (11.0-16.0); LYMPH # 1.4 K/uL (1.0-4.3); MEAN CELL VOLUME 95.8 fL (81.0-99.0); MEAN CORPUSCULAR HEMOGLOBIN 31.2 pg (27.0-31.0); MEAN CORPUSCULAR HGB CONC 32.5 g/dL (33.0-37.0); MONO # 0.8 K/uL (0.0-0.8); MONO % 6.5 % (0.0-10.0); NEUT # 9.5 K/uL (1.8-7.0); NEUT % 79.9 % (50.0-75.0); RBC 4.22 Mil/uL (3.80-5.20); RED CELL DISTRIBUTION WIDTH 13.4 % (11.5-14.5)
[2018-12-08 22:37] LABS: HCG,QUALITATIVE URINE POSITIVE (NEGATIVE)
[2018-12-08 22:39] LABS: SQUAMOUS EPITHIAL 3 /hpf (0-5); URINE BACTERIA RARE (<OCC); URINE BILIRUBIN NEGATIVE (NEGATIVE); URINE BLOOD 2+ (NEGATIVE); URINE CLARITY Clear (Clear); URINE COLOR Straw (YELLOW); URINE GLUCOSE (UA) NORMAL (Normal); URINE LEUKOCYTE ESTERASE NEG Leu/uL (Negative); URINE PROTEIN NEGATIVE (NEGATIVE); URINE UROBILINOGEN NORMAL mg/dL (0.2-1.0)
[2018-12-08 22:40] LABS: WHITE BLOOD COUNT 11.9 K/uL (4.8-10.8)
[2018-12-08 22:45] LABS: INR 1.1; PROTHROMBIN TIME 11.7 SECONDS (9.7-12.2)
[2018-12-08 22:56] LABS: ALB/GLOB RATIO 1.6 (1.0-2.1); ALBUMIN 4.7 g/dL (3.5-5.0); ALT/SGPT 26 U/L (9-52); AST/SGOT 31 U/L (14-36); BLOOD UREA NITROGEN 10 mg/dL (7-17); CALCIUM 9.5 mg/dl (8.6-10.4); GFR NON-AFRICAN AMERICAN > 60
[2018-12-09 01:48] VITALS: BP 142/78; PULSE 75; RESP 17; TEMP 98.3; O2SAT 98
--- NOTE | 2018-12-09 17:43 | US ---
Date of service: 12/08/2018 HISTORY: Vaginal bleeding. LMP 10/23/2018. COMPARISON: 12/06/2018. Pelvic ultrasound TECHNIQUE: Transvaginal only. Real -time technique with 2D, duplex and color Doppler FINDINGS: UTERUS: Measures 7.2 x 10.2 x 13.9 cm. Enlarged, heterogeneous uterus. Fundal fibroid, subserosal and exophytic 5.9 x 7.0 x 6.5 cm. Anterior fundal subserosal fibroid 4.2 x 5.4 x 5.4 cm. Posterior midline sub serosal fibroid 5.5 x 7.2 x 5.6 cm. ENDOMETRIUM: Measures 11.5 mm in diameter. No ultrasound findings to suggest gestational sac, fluid, debris, mass or polyp or other pathologic process within the endometrium. Gestational sac identified on the prior study no longer visible. CERVIX: Closed cervix 3.94 cm. Multiple nabothian cysts detected non larger than 1 cm. RIGHT OVARY: Not visible. LEFT OVARY: Not visible FREE FLUID: No significant free fluid noted. OTHER FINDINGS: None. IMPRESSION: Enlarged, heterogeneous uterus containing multiple (3) large fibroids. No visible intrauterine products of conception. Limitations of the current examination: Non visible adnexa Concordant findings (preliminary report) provided by [employer].
== END 2018-12-09 01:48 | disposition home or self-care (01) ==
LOC: SUPCPDRO 20:59 → C.ER 20:59
DX: O03.9 Complete or unspecified spontaneous abortion without complication (principal)